=== PATIENT | male | born 1955 | race Caucasian/White ===

== ENCOUNTER 2016-12-07 12:27 | Day surgery (SDC) | payer BC ==
[2016-12-07] MEDS ORDERED: LIDOCAINE 2% MDV (20MG/ML) 20ML VIAL IV ONE (14:00)
[2016-12-07] MEDS ORDERED: PROPOFOL 10 MG/ML VIAL IV ONE (14:00)
[2016-12-07] MEDS ORDERED: FENTANYL PF 100MCG/2ML VIAL IV ONE (14:00)
[2016-12-07 14:52] LABS: BASO % 0.3 % (0-6); EOS % 1.2 % (0-6); GRAN % 68.9 % (47-80); HEMATOCRIT 44.5 % (42.0-52.0); HEMOGLOBIN 15.4 gm/dl (14.0-18.0); LYMPH % 22.5 % (16-45); MEAN CELL VOLUME 90.3 fl (81-97); MEAN CORPUSCULAR HEMOGLOBIN 31.2 pg (27-33); MEAN CORPUSCULAR HGB CONC 34.6 g/dl (32-36); MEAN PLATELET VOLUME 10.8 fl (7.4-10.4); MONO % 7.1 % (0-9); PLATELET COUNT 207 K/uL (130-400); RED BLOOD COUNT 4.93 M/uL (4.40-5.70); RED CELL DISTRIBUTION WIDTH 12.7 % (11.5-14.5); WHITE BLOOD COUNT W/O DIFF 8.6 K/uL (4.2-12.2)
[2016-12-07 15:07] LABS: ALB/GLOB RATIO 1.4 (1.1-1.8); ALBUMIN 4.3 gm/dL (3.5-5.0); ALKALINE PHOSPHATASE 74 U/L (38-126); ALT/SGPT 19 U/L (21-72); AST/SGOT 20 U/L (17-59); BILIRUBIN,TOTAL 1.25 mg/dL (0.2-1.3); BLOOD UREA NITROGEN 14 mg/dL (9-20); EST GLOMERULAR FILTRATION RATE > 60 ml/min; GLUCOSE,RANDOM 96 mg/dL (70-110); LIPASE 39 U/L (23-300); TOTAL PROTEIN 7.4 gm/dL (6.3-8.2)
[2016-12-07 15:08] LABS: C-REACTIVE PROTEIN < 0.5 mg/dL (0.0-0.9)
--- NOTE | 2016-12-09 14:23 | Operative Note ---
Dictated by Lashay Mendosa DATE OF SURGERY: 12/07/2016 OPERATION: Diagnostic ESOPHAGOGASTRODUODENOSCOPY. ENDOSCOPIST: Meño Miranda DO STAFF CONSULTANT: Lashay Mendosa INDICATIONS: Epigastric abdominal pain for the past 1 year. PROCEDURE: risks, benefits, and alternatives of the procedure were discussed with the patient, and patient was agreeable to the procedure. All of his questions were answered. He signed informed written consent, and patient was taken back to the endoscopy suite. The patient was placed in the left lateral decubitus position and anesthesia was begun with propofol titrated to patient effect. Bite block was placed. A well-lubricated GIF-160 Olympus gastroscope was then inserted into the mouth and advanced through the esophagus and into the stomach and into the second portion of the duodenum. Careful inspection was made with normal mucosal folds, normal vascularity, and normal distensibility noted. The scope was then withdrawn into the duodenal bulb and again a close inspection was made of the chavez with no abnormalities. The patient was then drawn back into the stomach and retroflexed which did not reveal any abnormalities. The gastroscope was then withdrawn into the esophagus. An irregular Z-line was noted at 41 cm from the incisors. Multiple cold forceps biopsies were obtained of the Z-line and sent to pathology. The gastroscope was then advanced back into the stomach and air was suctioned from the stomach completely. The scope was then withdrawn. Careful inspection of the esophagus was made at this time, and no abnormalities were noted. The gastroscope was withdrawn from the patient completely. The patient tolerated the procedure well without any complications. IMPRESSION: 1. Irregular Z-line. 2. Otherwise normal EGD. RECOMMENDATIONS: Await biopsy results of the irregular Z-line. A repeat EGD will be pending based on pathology results. As far as further workup of patient's abdominal pain, we will obtain lab results as well as an abdominal ultrasound to rule out any gallbladder pathology. As always, thank you for allowing me to participate in the care of your patient. CC: Dr. Trini CISNEROS
== END 2016-12-07 17:25 | disposition home or self-care (01) ==
LOC: HOP 12:27
PROVIDERS: ATTEND Internal Medicine Gastroenterology
DX: K31.89 Other diseases of stomach and duodenum (principal); K21.9 Gastro-esophageal reflux disease without esophagitis
CPT/HCPCS: 83690; 85025; 86140; 80053; 43239; 00740; J3010

== ENCOUNTER 2016-12-28 12:45 | Day surgery (SDC) | payer BC ==
[2016-12-28] MEDS ORDERED: LIDOCAINE 2% MDV (20MG/ML) 20ML VIAL IV ONE (14:00)
[2016-12-28] MEDS ORDERED: PROPOFOL 10 MG/ML VIAL IV ONE (14:00)
[2016-12-28] MEDS ORDERED: MIDAZOLAM HCL 2MG/2ML VIAL IV ONE (14:00)
--- NOTE | 2016-12-30 13:10 | Operative Note ---
DATE OF SURGERY: 12/28/2016 Surgeon: Meño Miranda DO Referring physician: Henrry Feliz DO OPERATION: COLONOSCOPY TO THE CECUM WITH BIOPSY. INDICATION: Colorectal cancer screening. Intravenous sedation was administered by the Department of Anesthesiology and included Diprivan titrated to effect. PROCEDURE: Following informed consent from this alert individual, including a discussion of the risks and benefits of the procedure and opportunity for the patient to ask questions, the patient was in the left lateral decubitus position. Digital rectal examination was performed. No masses were noted. Following this, the Olympus PCF 180 Video Colonoscope was inserted in the rectum without resistance. The rectal mucosa had a normal appearance with normal folds and distensibility. The colonoscope was advanced up through the colon to the level of the cecum without difficulty. Throughout the bowel, the mucosa appeared normal, folds were normal. The bowel was filled with distensible. The cecum was defined by noting the appendiceal orifice and the ileocecal valve. At the appendiceal orifice there were some nodularity noted within the orifice itself and for this reason biopsies were taken to rule out polyps. From this point, the colonoscope was then withdrawn. No abnormalities were detected until the rectum was reached. Retroflexion within the rectum revealed small internal hemorrhoids. No other mucosal changes were appreciated throughout. The patient tolerated the procedure well and was returned to the recovery area in stable condition. IMPRESSION: 1. Some mild nodularity to the appendicial orifice. Biopsy was taken to rule out polyps. 2. Small internal hemorrhoids. RECOMMENDATIONS: The patient was advised that he should receive a copy of his pathology report at home in the next 2 to 3 weeks, if not he is asked to call my office to review the results of testing today. Further recommendations may be forthcoming pending those results. Follow up will also be with Dr. Henrry Feliz. As always, thank you for allowing me to participate in the care of your patient. CC: Dr. Henrry CISNEROS
== END 2016-12-28 15:20 | disposition home or self-care (01) ==
LOC: HOP 12:45
PROVIDERS: ATTEND Internal Medicine Gastroenterology
DX: Z12.11 Encounter for screening for malignant neoplasm of colon (principal); K64.8 Other hemorrhoids; K63.89 Other specified diseases of intestine; I10 Essential (primary) hypertension